=== PATIENT | female | born 1980 | race Hispanic/Latino ===

== ENCOUNTER → 2017-05-11 | Day surgery (SDC) | payer OTHER ==
--- NOTE | 2017-05-10 17:00 | History & Physical Pre-Op ---
General Information and HPI History of Present Illness: Jessi is a 37-year-old female with a long-standing and worsening complaint of a painful bunion left foot. The patient has undergone an extended course of conservative care, including shoe gear and activity modification, rest, immobilization and courses of NSAIDs. None of this is yielded her any significant relief. The patient presents today for preoperative surgical consultation. Allergies/Medications Allergies: Coded Allergies: No Known Allergies (05/01/16) Past History Surgical History Pertinent Surgical History: non-contributory, N Review of Systems Review of Systems: Unremarkable except for that noted in history of present illness Exam & Diagnostic Data Physical Exam: Lungs clear bilaterally. Heart sounds rate and rhythm regular. Lower extremity physical exam demonstrates intact pedal pulses bilaterally. Both dorsalis pedis and posterior tibial arteries are palpable bilaterally. Patient without any sensory motor deficits. Deep tendon reflexes grossly intact. Hallux noted to be tracking in track bound. Range of motion noted to the without crepitus. Assessment/Plan Assessment/Plan: Painful bunion left foot. A lengthy discussion reviewing both surgical and conservative options was held the patient at bedside and the patient elects to go forward surgery despite the risks. As Ranked By This Provider Problem List: 1. Acquired hallux valgus of left foot Attending MD Review Statement Attending Statement Attending MD Statement: examined this patient
[~2017-05-11] VITALS: Ht 162.6 cm; Wt 79.4 kg
--- NOTE | 2017-05-11 13:41 | Operative Report ---
Operative/Inv Procedure Report Surgery Date: 05/11/17 Name of Procedure: 1 Alonso bunionectomy left foot Pre-Operative Diagnosis: 1 hallux valgus left foot Post-Operative Diagnosis: The same Estimated Blood Loss: scant Surgeon/Law Office Receptionist: JESU MILLAN DPM Anesthesia: moderate sedation, block Operative/Procedure Note Note: After obtaining informed consent the patient was brought to the operating room and placed on the operating table in supine position. The patient isn't securely fastened to the operating table utilizing safety belt. After administration of IV sedation, 10 mL of 0.5% Marcaine plain was infiltrated about the patient's left ankle. A well-padded ankle tourniquet was placed about the patient's left lower extremity. 2 g of Ancef were delivered intravenously times one dose. The left foot and ankle then scrubbed prepped and draped in usual aseptic manner. Left lower extremity is elevated to examine to limb, at which point the ankle tourniquet was inflated 250 mmHg. Attention directed dorsal aspect the left foot where a 6 cm linear incision was made just medial to the course of the extensor listless longus tendon. Skin was as a 15 blade and deepened subtenons tissues. All vital neurovascular structures were identified protected. The dissection was then carried down to the capture structures where an inverted L capsulotomy was performed exposing the medial eminence. This was then resected with sagittal bone saw. Attention was then directed to the interspace, where a lateral capsulotomy was performed with release of the fibular suspensory ligament and the oblique head of the abductor hallucis tendon. The extensor hallucis brevis tendon was identified and tenotomized. A Chevron type osteotomy was then performed and the capital fragment was transposed laterally and impacted upon the metatarsal shelf. It was then fixated utilizing standard AO fixation techniques. The medial shelf was then revised with a sagittal bone saw. The wound was irrigated cuff Svensson normal sterile saline. The capture structures were reapproximated with 3-0 Vicryl and the subtenons tissues reapproximated 4-0 Vicryl. The skin edges were then reapproximated with 4-0 Monocryl. Incision was dressed with Steri-Strips Xeroform 4 x 4's Kerlix and an [place] wrap. The patient is noted tolerate both procedure and anesthesia well and the patient was transported from the operating room to recovery with vital signs stable best assess intact all digits left foot.
== END ==
LOC: STS 03:26
DX: M20.12 Hallux valgus (acquired), left foot (principal)
CPT/HCPCS: 81025; J0690; J2001; J2250